=== PATIENT | female | born 2000 | race Caucasian/White ===

== ENCOUNTER 2018-01-27 21:10 | Emergency (ER) | payer OTHER ==
--- NOTE | 2018-01-27 22:10 | ER Document Report ---
ED General - General Chief Complaint: Vag Bleeding, +preg <12wks Stated Complaint: VAGINAL BLEEDING Time Seen by Provider: 01/27/18 22:02 Mode of Arrival: Ambulatory Information source: Patient Notes: 17-year-old female with no reported past medical history at 5 weeks and 4 days per her last menstrual period on December 19 presents with complaint of vaginal bleeding and abdominal cramping. Patient states cramping has been ongoing for several weeks but was told by her doctor that that was normal. Bleeding still started today. She describes it as a small amount without clots. Patient describes the abdominal cramping as intermittent, mild. She has no associated fever, nausea, vomiting, chest pain, shortness of breath. She has been seen by her primary care physician but has not had an ultrasound as of yet. She does take vitamins. She denies any tobacco alcohol or illicit drug use. TRAVEL OUTSIDE OF THE [place] IN LAST 30 DAYS: No - HPI Onset: This afternoon Onset/Duration: Sudden, Gradual Quality of pain: Cramping Severity: None Pain Level: Denies Associated symptoms: denies: Nonproductive cough, Productive cough, Fever, Headache, Nausea, Vomiting Exacerbated by: Denies Relieved by: Denies Similar symptoms previously: No Recently seen / treated by doctor: Yes - Related Data Allergies/Adverse Reactions: No Known Allergies Allergy (Unverified 01/27/18 21:14) Past Medical History - General Information source: Patient - Social History Smoking Status: Never Smoker Frequency of alcohol use: None Drug Abuse: None Lives with: Spouse/Significant other Family History: Reviewed & Not Pertinent Patient has suicidal ideation: No Patient has homicidal ideation: No - Medical History Medical History: Negative Review of Systems - Review of Systems Constitutional: denies: Fever, Weakness EENT: denies: Blurred vision Cardiovascular: denies: Chest pain, Palpitations, Dizziness Respiratory: denies: Short of breath Gastrointestinal: Abdominal pain Genitourinary: denies: Dysuria, Flank pain Female Genitourinary: , Vaginal bleeding Musculoskeletal: denies: Joint swelling, Leg swelling Skin: denies: Dryness, Rash Hematologic/Lymphatic: denies: Easy bleeding Neurological/Psychological: denies: Headaches, Suicidal ideation -: Yes All other systems reviewed and negative Physical Exam - Vital signs Vitals: Temp Pulse Resp BP Pulse Ox 97.9 F 96 H 20 125/60 100 01/27/18 21:50 01/27/18 21:50 01/27/18 21:50 01/27/18 21:50 01/27/18 21:50 - Notes Notes: PHYSICAL EXAMINATION: GENERAL: Well-appearing, well-nourished and in no acute distress. HEAD: Atraumatic, normocephalic. EYES: Pupils equal round and reactive to light, extraocular movements intact, conjunctiva are normal. ENT: Nares patent, oropharynx clear without exudates. Moist mucous membranes. NECK: Normal range of motion, supple without lymphadenopathy LUNGS: Breath sounds clear to auscultation bilaterally and equal. No wheezes rales or rhonchi. HEART: Regular rate and rhythm without murmurs ABDOMEN: Soft, nontender, nondistended abdomen. No guarding, no rebound. No masses appreciated. Female : Scant vaginal bleeding, Os closed. No cervical motion tenderness. No vaginal lesions. Musculoskeletal: Normal range of motion, no pitting or edema. No cyanosis. NEUROLOGICAL: Cranial nerves grossly intact. Normal speech, normal gait. Normal sensory, motor exams PSYCH: Normal mood, normal affect. SKIN: Warm, Dry, normal turgor, no rashes or lesions noted. Course - Re-evaluation Re-evalutation: Laboratory 01/27/18 01/27/18 01/27/18 22:37 22:37 22:37 WBC 14.6 H RBC 5.38 H Hgb 15.4 Hct 44.0 MCV 82 MCH 28.7 MCHC 35.1 RDW 14.2 H Plt Count 291 Seg Neutrophils % 67.9 Lymphocytes % 25.6 Monocytes % 5.0 Eosinophils % 1.1 Basophils % 0.4 Absolute Neutrophils 9.9 H Absolute Lymphocytes 3.7 Absolute Monocytes 0.7 Absolute Eosinophils 0.2 Absolute Basophils 0.1 Beta HCG, Quant 5866.80 H Total Beta HCG POSITIVE Urine Color Urine Appearance Urine pH Ur Specific Blue [place] Urine Protein Urine Glucose (UA) Urine Ketones Urine Blood Urine Nitrite Urine Bilirubin Urine Urobilinogen Ur Leukocyte Esterase Urine WBC (Auto) Urine RBC (Auto) Squamous Epi Cells Auto Urine Mucus (Auto) Urine Ascorbic Acid Bacteria (Wet Prep) Trichomonas (Wet Prep) Vaginal WBC Vaginal RBC Vaginal Yeast Chlamydia DNA (PCR) N.gonorrhoeae DNA (PCR) Blood Type B NEGATIVE Antibody Screen NEGATIVE Rhogam Indicated RHOGAM REQUESTED 01/27/18 01/27/18 01/27/18 22:37 22:49 22:49 WBC RBC Hgb Hct MCV MCH MCHC RDW Plt Count Seg Neutrophils % Lymphocytes % Monocytes % Eosinophils % Basophils % Absolute Neutrophils Absolute Lymphocytes Absolute Monocytes Absolute Eosinophils Absolute Basophils Beta HCG, Quant Total Beta HCG Urine Color STRAW Urine Appearance CLEAR Urine pH 7.0 Ur Specific [place] 1.003 Urine Protein NEGATIVE Urine Glucose (UA) NEGATIVE Urine Ketones NEGATIVE Urine Blood LARGE H Urine Nitrite NEGATIVE Urine Bilirubin NEGATIVE Urine Urobilinogen NEGATIVE Ur Leukocyte Esterase NEGATIVE Urine WBC (Auto) 1 Urine RBC (Auto) 1 Squamous Epi Cells Auto 2 Urine Mucus (Auto) RARE Urine Ascorbic Acid NEGATIVE Bacteria (Wet Prep) 3+ BACTERIA SEEN Trichomonas (Wet Prep) NO TRICHOMONAS SEEN Vaginal WBC RARE WBCS SEEN Vaginal RBC 2+ RBCS SEEN Vaginal Yeast NO YEAST SEEN Chlamydia DNA (PCR) NOT DETECTED N.gonorrhoeae DNA (PCR) NOT DETECTED Blood Type Antibody Screen Rhogam Indicated Obstetrics Ultrasound 01/28/18 00:03 IMPRESSION: 1. No intrauterine confirmed. Differential diagnosis includes early viable intrauterine single/twin gestation, gestational loss, and occult ECTOPIC gestation. Recommend 48 -72 hours laboratory/sonographic surveillance. Two. Bicornuate/septate uterus pattern. 01/27/18 22:12 17-year-old female with no reported past medical history at 5 weeks and 4 days per her last menstrual period on December 19 presents with complaint of vaginal bleeding and abdominal cramping. Patient states cramping has been ongoing for several weeks but was told by her doctor that that was normal. Bleeding started today. She describes it as a small amount without clots. Patient describes the abdominal cramping as intermittent, mild. She has no associated fever, nausea, vomiting, chest pain, shortness of breath. She has been seen by her primary care physician but has not had an ultrasound as of yet. Patient has an upcoming appointment with women's health on February 08, 2018 she does take vitamins. She denies any tobacco alcohol or illicit drug use. Patient was seen by myself upon arrival. Vital signs were reviewed. Patient is afebrile, normotensive and not hypoxic. Patient does not appear toxic or dehydrated. They are in no acute distress. Previous medical records and nursing notes reviewed. Significant findings include mild vaginal bleeding , positive test. Patient is Rh- and did receive RhoGam during her ED course. Transvaginal ultrasound was performed and we were unable to detect an IUP or see an ectopic at this time. 01/28/18 03:03 FAST exam performed and negative for blood in the abdomen. I explained the ultrasound findings with the patient. Unfortunately we were not able to see a definitive IUP or ectopic. 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 Patient currently not having any pain. Pelvic exam showed mild vaginal bleeding os closed. Radiology recommendations is that patient has a repeat transvaginal ultrasound in 48 hours. I do not want to order this as a outpatient exam due to the patient's high risk of ectopic. Patient provided the opportunity to ask questions, and express concerns. Discharge instructions discussed. Patient is agreeable with discharge home. Return indications explained and discussed with the patient who displays understanding. Patient encouraged to return to the emergency department immediately with any concerns. - Vital Signs Vital signs: Temp Pulse Resp BP Pulse Ox 97.9 F 96 H 20 125/60 100 01/27/18 21:50 01/27/18 21:50 01/27/18 21:50 01/27/18 21:50 01/27/18 21:50 - Laboratory Result Diagrams: 01/27/18 22:37 Laboratory results interpreted by me: 01/27/18 01/27/18 01/27/18 22:37 22:37 22:37 WBC 14.6 H RBC 5.38 H RDW 14.2 H Absolute Neutrophils 9.9 H Beta HCG, Quant 5866.80 H Urine Blood LARGE H - Diagnostic Test Radiology reviewed: Image reviewed, Reports reviewed Discharge - Discharge Clinical Impression: Bleeding in early Condition: Good Disposition: HOME, SELF-CARE Instructions: Bleeding During Early ([facility]), Ectopic Precaution ([facility]), Threatened Abortions ( Patients) Additional Instructions: Please return to the emergency department in 48 hours for repeat transvaginal ultrasound and repeat hCG level. Your ultrasound today did not show a definitive or an ectopic . Please return before 48 hours if you experience abdominal pain or heavy vaginal bleeding. Follow up with your physician tomorrow for further care or return to the ED IMMEDIATELY if symptoms worsen or new concerns occur. If you cannot afford to follow up with your primary care physician a list of low cost clinics have been provided at the end of your discharge papers as well. Referrals: [facility] [Provider Group] - Follow up as needed [facility] [Provider Group] - Follow up as needed
[2018-01-27 22:48] LABS: ABSOLUTE BASOPHILS # (AUTO) 0.1 10^3/uL (0.0-0.2); ABSOLUTE EOSINOPHILS # (AUTO) 0.2 10^3/uL (0.0-0.6); ABSOLUTE LYMPHOCYTES (AUTO) 3.7 10^3/uL (0.5-4.7); ABSOLUTE MONOCYTES (AUTO) 0.7 10^3/uL (0.1-1.4); ABSOLUTE NEUT (AUTO) 9.9 10^3/uL (1.7-8.2); BASOPHILS % (AUTO) 0.4 % (0-2); EOSINOPHILS % (AUTO) 1.1 % (0-6); HEMOGLOBIN 15.4 g/dL (12.0-15.5); LYMPHOCYTES % (AUTO) 25.6 % (13-45); MEAN CORPUSCULAR HEMOGLOBIN 28.7 pg (27.0-33.4); MEAN CORPUSCULAR HGB CONC 35.1 g/dL (32.0-36.0); MEAN CORPUSCULAR VOLUME 82 fl (80-97); PLATELET COUNT 291 10^3/uL (150-450); RED BLOOD COUNT 5.38 10^6/uL (3.72-5.28); RED CELL DISTRIBUTION WIDTH 14.2 % (11.5-14.0); SEGMENTED NEUTROPHILS % (AUTO) 67.9 % (42-78); TOTAL CELLS COUNTED % (AUTO) 100 %; WHITE BLOOD COUNT 14.6 10^3/uL (4.0-10.5)
[2018-01-27 22:54] LABS: APPEARANCE,URINE CLEAR; BILIRUBIN,URINE NEGATIVE (NEGATIVE); COLOR,URINE STRAW; GLUCOSE, URINE NEGATIVE (NEGATIVE); KETONES,URINE NEGATIVE (NEGATIVE); LEUKOCYTE ESTERASE,URINE NEGATIVE (NEGATIVE); NITRITE,URINE NEGATIVE (NEGATIVE); PROTEIN,URINE NEGATIVE (NEGATIVE); URINE SPECIFIC GRAVITY 1.003; UROBILINOGEN,URINE NEGATIVE mg/dL (<2.0)
[2018-01-27 23:05] LABS: BACTERIA (WET MOUNT) 3+ BACTERIA SEEN; RBCS (WET MOUNT) 2+ RBCS SEEN; T.VAGINALIS (WET MOUNT) NO TRICHOMONAS SEEN; WBCS (WET MOUNT) RARE WBCS SEEN; YEAST (WET MOUNT) NO YEAST SEEN
[2018-01-28 00:26] LABS: CHLAM PCR NOT DETECTED (NOT DETECT); GON PCR NOT DETECTED (NOT DETECT)
--- NOTE | 2018-01-28 02:43 | RADIOLOGY REPORT (SQ) ---
EXAM DESCRIPTION: US TRANSVAGINAL CLINICAL HISTORY: 17 years Female, Abdominal pain and bleeding during Comparison: None. TECHNIQUE: Transvaginal. LIMITATIONS: None. FINDINGS: No intrauterine confirmed. No fetus. No cardiac activity. No yolk sac. There is a possible bicornuate uterus with two small cystic fluid collection/decidual reaction with mean sac diameter 0.9 cm on the left and 0.5 cm on the right which if viable would correspond with early twin gestational age of five weeks and four days. Ovarian fossae appear unremarkable, ovaries not discerned, 2.6-cm cervical length, and no free fluid. IMPRESSION: 1. No intrauterine confirmed. Differential diagnosis includes early viable intrauterine single/twin gestation, gestational loss, and occult ECTOPIC gestation. Recommend 48 -72 hours laboratory/sonographic surveillance. Two. Bicornuate/septate uterus pattern.
[2018-01-28 04:11] VITALS: BP 109/63
== END 2018-01-28 03:46 | disposition home or self-care (01) ==
LOC: ER 21:10
DX: O46.91 Antepartum hemorrhage, unspecified, first trimester (principal); O26.891 Other specified pregnancy related conditions, first trimester; R10.9 Unspecified abdominal pain; Z3A.00 Weeks of gestation of pregnancy not specified
CPT/HCPCS: 99284; 96372; 86900; 86901; 36415; 87210; 86850; 84702; 85025; 81001; 87491; 87591; 76817; J2790